=== PATIENT | female | born 1990 | race Caucasian/White ===

== ENCOUNTER 2023-11-22 00:57 | Emergency (ER) | payer OTHER ==
[2023-11-22] MEDS ORDERED: PROMETHAZINE HCL 25 MG/ML AMP IV ONE (01:05)
[2023-11-22] MEDS ORDERED: KETOROLAC TROMETHAMINE 30 MG/ML SDV IV ONE (01:05)
[2023-11-22] MEDS ORDERED: ASPIRIN 81 MG/TAB PO ONE (01:05)
[2023-11-22] MEDS ORDERED: SODIUM CHLORIDE 0.9% 1,000 ML IV ONE (01:05)
[2023-11-22 01:19] LABS: BASO% 0.5 % (0-3); EOS% 2.6 % (0-8); HEMATOCRIT 35.2 % (37.0-47.0); HEMOGLOBIN 11.7 g/dl (12.0-16.0); IMMATURE GRANULOCYTES 0.2 % (0.0-5.0); LYMPH% 39.4 % (15-41); MEAN CELL VOLUME 88.9 fL CALC (80.0-100.0); MEAN CORPUSCULAR HGB 29.5 pG CALC (26.0-32.0); MEAN CORPUSCULAR HGB CONC 33.2 g/dL CAL (32.0-36.0); MONO% 7.8 % (2-13); NEUT# 4.38 thou/uL (2.00-7.15); NEUT% 49.5 % (42-76); RED BLOOD COUNT 3.96 mill/uL (4.20-5.60); RED CELL DISTRI WIDTH 12.6 % (11.5-15.5)
[2023-11-22 01:37] LABS: ALBUMIN 3.9 g/dL (3.2-5.0); ALKALINE PHOSPHATASE 60 u/l (38-126); ANION GAP 9 (6-22 (CALC)); BILIRUBIN, TOTAL 0.2 mg/dL (0.02-1.3); BUN 6 mg/dL (7-17); BUN/CREATININE RATIO 7 (12-20 (CALC)); CARBON DIOXIDE 23 mmol/l (22-30); CHLORIDE 109 mmol/l (95-108); CREATININE 0.8 mg/dL (0.5-1.0); ESTIMATED GFR 100 ML/MIN (>=90 (CALC)); ETHYL ALCOHOL 136 mg/dl (0-30); POTASSIUM 3.1 mmol/l (3.5-5.1); SGOT/AST 25 u/l (14-36); SODIUM 137 mmol/l (137-146); TOTAL PROTEIN 6.9 g/dL (6.3-8.2)
[2023-11-22] MEDS ORDERED: VOLTAREN - GENE75 MG PO (03:48)
[2023-11-22 04:00] VITALS: BP 135/78
== END 2023-11-22 04:23 | disposition home or self-care (01) ==
LOC: ED 00:57
PROVIDERS: Family Medicine
DX: R07.89 Other chest pain (principal); F31.9 Bipolar disorder, unspecified; F17.200 Nicotine dependence, unspecified, uncomplicated